=== PATIENT | male | born 1950 | race Caucasian/White ===

== ENCOUNTER 2016-12-19 19:10 | Day surgery (SDC) | payer BC, MEDICARE ==
--- NOTE | ~2016-12-19 | CR72 ---
[facility] A Service of [facility] RADIOLOGY TEXT RESULTS PATIENT: JAKY MADRIGAL LOCATION: CEDOF : 48 UNIT #: [id number] AGE: [address]: Max Mendez MD SEX: M ORDER DR: [id number] [facility] [address] [place], [place] [address] [id number] MR#: [id number] Acc #: [id number] NAME: JAKY MADRIGAL. : 1950 SEX: M STUDY DATE/TIME: 12/19/2016 22:15 UNIT: CEDOF ROOM: 11085 STUDY DESCRIPTION: CR Chest Single View Portable Attending Physician: Max Mendez Jr., M.D. Ordering Physician: Bari Diaz M.D. Primary Care Physician: Colt Ridley M.D. MEDICAL IMAGING REPORT This report is preliminary unless electronic signature is present EXAM Portable chest, 12/19/16 COMPARISON STUDIES 07/18/15 HISTORY Suspected foreign body with chest pain and epigastric pain that started today. Possible foreign body stuck in throat. FINDINGS A portable view of the chest is obtained. The heart size and vascularity is normal. The lungs are clear. There is a dense nodule in the left base measuring 19 mm in diameter. It is unchanged since 07/18/15 and was also present 06/18/14, and is therefore benign. IMPRESSION 1. Stable left base nodule unchanged for about 2.5 years. 2. No active disease. Dictated by... Alvarez ePtty M.D. THIS IS AN ELECTRONICALLY VERIFIED REPORT Alvarez Petty M.D. at 12/20/2016 5:54 AM JCARLOS/ad TD: 12/20/2016 00:26 JOB #: [id number] [facility] A Service of [facility] & [facility] RADIOLOGY TEXT RESULTS PATIENT: JAKY MADRIGAL LOCATION: CEDOF : 48 UNIT #: [id number] AGE: [address]: Max Mendez MD SEX: M ORDER DR: MEDICAL IMAGING REPORT Page 1 of 1 COPY
--- NOTE | ~2016-12-19 | OR ---
Unit #: [id number] #: [id number] Patient: JAKY MADRIGAL [id number] [facility]. [address] [place], [place] [address] [id number] MR#: [id number] NAME: JAKY MADRIGAL. ROOM: 67363 Date of Procedure: 12/20/2016 Admission Date: 12/19/2016 Surgeon: Max Mendez Jr., M.D. : 1950 Attending Physician: Max Mendez Jr., M.D. Primary Care Physician: Colt Ridley M.D. OPERATIVE REPORT INDICATIONS FOR PROCEDURE The patient is a 66-year-old white male, who presented to the emergency room complaining of severe dysphagia, he was unable to even swallow his own saliva. He had been eating meat, it was felt that he had probably a foreign body of the distal esophagus. Approximately 3 to 4 hours ago, he felt like the foreign body may have passed, and he does have a known past history for Carolin fundoplication approximately 2 years ago, and has been doing well with his reflux symptoms with minimal symptoms. It was felt that the patient needed an upper endoscopy with possible dilatation and possible removal of foreign body. He is brought to the endoscopy suite at this time for this procedure. He understands the procedure including the risks, including that of bleeding, perforation, and consents. PREOPERATIVE DIAGNOSIS Possible foreign body of the distal esophagus with esophageal stenosis. POSTOPERATIVE DIAGNOSES Moderate distal esophagitis with stenosis and mild hemorrhagic gastritis in the antrum and recurrent small hiatal hernia. ANESTHESIA MAC anesthesia. PROCEDURES PERFORMED Flexible fiberoptic esophagogastroduodenoscopy with biopsies of distal esophagus and balloon dilatation up to 18 to 19 mm slowly. DESCRIPTION OF PROCEDURE The patient was positioned in Jordan position with left side down. After being given MAC anesthesia, the Olympus XQ scope was passed in the proximal esophagus. The entire esophagus was examined. Proximal two-thirds appeared normal. In the area of the distal esophagus, there was some tortuosity with moderate narrowing. There was no evidence of any foreign body. The scope was advanced through the distal esophagus into the cardia, fundic, and antral region of the stomach, and retroflexed back up to the area of the cardia. There was a small hiatal hernia present. The stomach distended well without evidence of rigidity. No evidence of any gastric ulcer disease. There was some mild hemorrhagic gastritis involving the antrum. The scope was advanced through the pylorus, into the duodenal bulb, and down to the second portion of the duodenum. The entire duodenal portion examination was within normal limits. The scope Unit #: [id number] #: [id number] Patient: JAKY MADRIGAL was slowly removed to the area of the fundus, where an 18 to 20 mm balloon dilator was placed, brought up in the distal esophagus, and used to slowly dilate the distal esophagus from 18 to 19 mm. There was a minimal amount of oozing from the area, but no evidence of any perforations, tears, or significant bleeding. There was some irregular tissue in the distal esophagus near the GE junction, and several biopsies were taken from this for Pathology without bleeding. The scope was removed. The patient tolerated the procedure well and discharged in satisfactory condition. Dictated by... Max Mendez Jr., MYaz. KEV/elba TD: 12/20/2016 14:22 JOB #: [id number] OPERATIVE REPORT Page 1 of 1 X Max Mendez MD X PROCEDURE OPERATIVE NOTE
--- NOTE | ~2016-12-19 | HP ---
Unit #: [id number] #: [id number] Patient: JAKY MADRIGAL [id number] [address] [place], [place] [address] [id number] MR#: [id number] NAME: JAKY MADRIGAL. ROOM: 84395 Age: 66 Sex: M Admission Date: 12/19/2016 : 1950 Attending Physician: Max Mendez Jr., M.D. Primary Care Physician: Colt Ridley M.D. HISTORY AND PHYSICAL CHIEF COMPLAINT Severe dysphagia. PRESENT ILLNESS The patient is a 66-year-old, white male who presented complaining of severe dysphagia with some vomiting. This was after eating a piece of steak and he felt that he did have a foreign body of the esophagus stuck in place. He has had a known past history for gastroesophageal reflux disease and had Carolin fundoplication laparoscopically approximately two years ago by Dr. Wallace. He has had no recent significant dysphagia though until now. His weight has been stable. PAST MEDICAL HISTORY He has had a history of hypertension, cancer, liver problems, and musculoskeletal problems with chronic arthritis. He has had reflux, as noted above. His cancer was prostate cancer and he has also had some parkinsonism. SURGERY IN THE PAST He has had a left total knee replacement, left rotator cuff repair, disk surgery in his spine, appendectomy, cholecystectomy, and Carolin fundoplication as noted above. MEDICATIONS He is on: 1. Losartan. 2. Potassium. 3. Prevacid. 4. Bystolic. 5. Fish oil. 6. Carafate. 7. Celebrex. 8. Carbidopa-levo. ALLERGIES No known allergies. TRANSFUSIONS None in the past. FAMILY HISTORY Noncontributory. SOCIAL HISTORY Unit #: [id number] #: [id number] Patient: JAKY MADRIGAL The patient is and lives at home with his family. He has a normal good appetite. No recent weight change. He is a nonsmoker and nondrinker. IMMUNIZATIONS Up to date. REVIEW OF SYSTEMS Ten-system review has been performed, which is non-remarkable except that noted in the present illness. PHYSICAL EXAMINATION VITAL SIGNS: Temperature on admission 98.8, pulse 68, respirations 16, and blood pressure 133/72. GENERAL DESCRIPTION: The patient is a well developed, well nourished, 66-year-old, white male in no acute distress. HEENT: Non-remarkable. NECK: Supple. CHEST: Shows equal bilateral expansion with bilateral equal breath sounds. LUNGS: Clear bilaterally. HEART: Regular rhythm without murmurs or gallops. There is no evidence of cardiomegaly clinically. ABDOMEN: Soft, nontender, and benign without palpable mass or organomegaly. There is no gross abdominal distention. No guarding or rebound. Active bowel sounds present. No evidence of ascites or hernias. EXTREMITIES: Full range of motion without limitation. There is no evidence of peripheral edema. BACK: There is no CVA tenderness. NEUROLOGICAL: Grossly intact. IMPRESSION The patient has possibly a foreign body of the esophagus or esophageal stenosis along with his reflux disease. The plan will be to go ahead with upper endoscopy and removal of the foreign body and esophageal dilatation. The patient understands the procedure including the risks including that of perforation and bleeding and consents. Dictated by Max Mendez Jr., MPhilipp ANGULO/terri TD: 12/20/2016 11:15 JOB #: [id number] HISTORY AND PHYSICAL Page 1 of 1 X Max Mendez MD X HISTORY AND PHYSICAL
--- NOTE | ~2016-12-19 | EKG ---
PATIENT: JAKY MADRIGAL UNIT #: [id number] Ventricular Rate: 58 BPM Atrial Rate: 58 BPM P-R Interval: 186 ms QRS Duration: 78 ms Q-T Interval: 404 ms QTC Calculation(Bezet): 396 ms P [place]: 83 degrees Calculated R [place]: 9 degrees Calculated T [place]: 10 degrees Diagnosis Line: Sinus bradycardia Diagnosis Line: Otherwise normal ECG Diagnosis Line: When compared with ECG of 08-APR-2016 10:13, Diagnosis Line: No significant change was found Diagnosis Line: Confirmed by NICK CAMERON MD ([id number]) on 12/21/2016 Diagnosis Line: 4:30:27 PM INTERPRETING MD: NISHA BELL
[~2016-12-19 19:10] MED LIST: ACETAMINOPHEN325 MG PO; ASPIRIN81 M2 PO; BYSTOLIC5 MG PO; CARAFATE1 G PO; CARAFATE1 GM PO; CARBIDOPA-LEVO1 TAB PO; CEFTIN500 MG PO; CELECOXIB200 MG PO; CIPRO250 M1 PO; CIPRO250 MG PO; COUMADIN6 MG PO; COZAAR PO; FISH OIL 1,0001 CAP PO; FISH OIL 1,2001 EAC5 PO; FLOMAX0.4 M1 PO; HYDROCODON-ACE1 EAC9 PO; HYDROCODONE-APA1 T61 PO; LISINOPRIL PO; LOSARTAN POTAS100 MG PO; LOSARTAN POTASS25 MG PO; MOBIC15 MG PO; NEXIUM PO; NORCO 10-325 TA1 TAB PO; NORVASC PO; PREVACID PO; REGLAN10 MG PO; TOPROL XL PO; TOPROL XL50 MG PO; VOLTAREN75 MG PO; ZOFRANODT PO; ZPAK
[2016-12-19 21:35] LABS: BASOPHIL# 0.1 X10e3 (0-0.3); BASOPHIL% 0.5 % (0-2.5); EOSINOPHIL# 0.4 X10e3 (0-0.7); EOSINOPHIL% 4.1 % (0.0-7.0); HEMATOCRIT 45.7 % (38.0-50.0); LYMPHOCYTE# 1.6 X10e3 (1.0-3.5); LYMPHOCYTE% 15.7 % (17.0-45.0); MEAN CELL VOLUME 91.1 FL (83-96); MEAN CORPUSCULAR HEMOGLOBIN 29.9 PG (28-34); MEAN CORPUSCULAR HGB CONC 32.8 g/dL (30-36); MEAN PLATELET VOLUME 7.6 FL (6.5-11.5); MONOCYTE# 0.9 X10e3 (0-1.0); MONOCYTE% 8.7 % (3.0-12.0); NEUTROPHIL# 7.1 X10e3 (1.5-7.1); PLATELET COUNT 228 X10e3 (140-420); RED BLOOD COUNT 5.01 X10e (3.90-5.60); RED CELL DISTRIBUTION WIDTH 14.2 % (11.0-15.5); WHITE BLOOD COUNT 10.1 X10e3 (4.0-10.5)
[2016-12-19 21:36] LABS: DIFF IND NO
[2016-12-19 21:57] LABS: BUN/CREATININE RATIO 24.54; CREATININE SERUM 1.1 mg/dL (0.6-1.4); GLOM FILT RATE Estimated 68.6 mL/min (>60); POTASSIUM 4.7 mmol/L (3.5-5.1)
== END 2016-12-20 | disposition home or self-care (01) ==
LOC: CED 19:10 → CEDOF 22:20 → CSUR 12-20 09:45
PROVIDERS: Emergency Medicine
DX: K25.9 Gastric ulcer, unspecified as acute or chronic, without hemorrhage or perforation (principal); K20.9 Esophagitis, unspecified; K22.2 Esophageal obstruction; K44.9 Diaphragmatic hernia without obstruction or gangrene; I10 Essential (primary) hypertension; M19.90 Unspecified osteoarthritis, unspecified site; Z85.46 Personal history of malignant neoplasm of prostate; Z79.1 Long term (current) use of non-steroidal anti-inflammatories (NSAID); Z79.82 Long term (current) use of aspirin; Z79.899 Other long term (current) drug therapy; Z90.49 Acquired absence of other specified parts of digestive tract
CPT/HCPCS: 36415; 71010; 80048; 85025; 88305; 93005; 96361; 96374; 96375; 99285; C9113; J1610; J2250; J2405; J2550